=== PATIENT | male | born 1945 | race African-American/Black ===

== ENCOUNTER → 2017-01-14 | Outpatient (CLI) | payer OTHER ==
[~2017-01-14] MED LIST: FUROSEMIDE40 MG PO; LOPRESSOR PO; PARICALCITOL1 MCG PO
[2017-01-14 10:38] LABS: ALBUMIN SERUM 4.2 g/dL (3.5-5.0); BILIRUBIN,TOTAL 0.5 mg/dL (0.2-2.0); BUN/CREATININE RATIO 15.33; CALCIUM SERUM 9.9 mg/dL (8.4-10.2); CREATININE SERUM 1.5 mg/dL (0.6-1.4); GLOM FILT RATE Estimated 53.9 mL/min (>60); PHOSPHOROUS 2.8 mg/dL (2.5-4.6); POTASSIUM 4.9 mmol/L (3.5-5.1); PROTEIN TOTAL SERUM 7.9 g/dL (6.0-8.3); URIC ACID 4.3 mg/dL (2.6-7.2)
[2017-01-21 11:42] LABS: CALCIUM (PTHINTACT) 10.1 mg/dL (8.6-10.3)
== END | disposition home or self-care (01) ==
LOC: CLAB 09:21
PROVIDERS: Internal Medicine Nephrology
DX: N18.3 Chronic kidney disease, stage 3 (moderate) (principal); N25.81 Secondary hyperparathyroidism of renal origin
CPT/HCPCS: 36415; 80053; 82310; 83970; 84100; 84550